=== PATIENT | male | born 1975 | race Hispanic/Latino ===

== ENCOUNTER 2024-06-05 10:20 | Emergency (ER) | payer OTHER ==
[~2024-06-05] VITALS: Ht 170.2 cm; Wt 100.2 kg
[2024-06-05 10:25] VITALS: PULSE 71; RESP 18; TEMP 97.5
[2024-06-05] MEDS ORDERED: DOXYCYCLINE HY100 MG PO (10:56)
[2024-06-05] MEDS ORDERED: IBUPROFEN200 MG PO (10:56)
[2024-06-05 12:15] VITALS: BP 136/84; PULSE 73; RESP 18; TEMP 98.2; O2SAT 99
== END 2024-06-05 11:45 | disposition home or self-care (01) ==
LOC: EDSEX 10:20 → FSED 10:25
DX: S61.233A Puncture wound without foreign body of left middle finger without damage to nail, initial encounter (principal); W23.1XXA Caught, crushed, jammed, or pinched between stationary objects, initial encounter; Y92.89 Other specified places as the place of occurrence of the external cause
CPT/HCPCS: 99283